=== PATIENT | male | born 1985 | race Caucasian/White ===

== ENCOUNTER 2024-01-15 12:47 | Emergency (ER) | payer OTHER ==
[~2024-01-15] VITALS: Ht 188 cm; Wt 115.0 kg
[2024-01-15] MEDS ORDERED: NITROGLYCERIN 0.4 MG SUBL SL PRN (13:00)
[2024-01-15] MEDS ORDERED: ASPIRIN 81 MG CHEW PO ONE (13:00)
[2024-01-15] MEDS ORDERED: KETOROLAC TROMETHAMINE 30 MG/ML VIAL IV ONE (13:00)
[2024-01-15 13:26] LABS: BASOPHILS 0.5 % (0-2); HEMATOCRIT 41.1 % (35.0-50.0); HEMOGLOBIN 14.4 g/dL (12.0-18.0); LYMPHOCYTES 10.7 % (24-44); MCH 28.5 (27-36); MCV 81.6 fl (81-99); MONOCYTES 5.7 % (0-12); NEUTROPHILS 81.1 % (39-80); PLATELET COUNT 234 K/uL (140-440); RBC 5.03 M/ul (4.3-5.7); RDW 13.3 (10.5-15.0)
[2024-01-15 13:39] LABS: INR 0.98 (0.80-1.30); PROTIME 12.3 Sec (11.2-14.2)
[2024-01-15 13:48] LABS: ALBUMIN 4.2 g/dL (3.4-5.0); ALBUMIN/GLOBULIN RATIO 1.27 (1.1-2.4); ALKALINE PHOSPHATASE 72 U/L (46-116); ALT (SGPT) 26 U/L (14-59); ANION GAP 11.3 (7-21); AST (SGOT) 11 U/L (15-37); BILIRUBIN, TOTAL 0.4 ng/dL (0.2-1.0); BUN/CREATININE RATIO 20.58 (6.0-28.6); CALCIUM 9.3 mg/dL (8.5-10.1); CARBON DIOXIDE 31 mmol/L (21-32); CHLORIDE 101 mmol/L (98-107); CREATININE, SERUM 1.02 mg/dL (0.70-1.30); GLOMERULAR FILTRATION RATE,EST 95 mL/min (>60); POTASSIUM 4.3 mmol/L (3.5-5.1); PROTEIN, TOTAL 7.5 g/dL (6.4-8.2); UREA NITROGEN 21 mg/dL (7-18)
[2024-01-15 15:46] VITALS: BP 122/77
--- NOTE | 2024-01-15 21:27 | EKG ---
[facility] [address] [facility] [place] [address] Signed Normal sinus rhythm Normal ECG No previous ECGs available Confirmed by Salvatore Armstrong MD () on 01/15/2024 9:26:46 PM Electronically Signed By: SALVATORE ARMSTRONG MD 01/15/[id number] PATIENT NAME: AMIE GARCIA Electrocardiogram DATE OF : 81 PHYSICIAN: SALVATORE ARMSTRONG MD REPORT #: [id number] REPORT IS CONFIDENTIAL AND NOT TO BE RELEASED WITHOUT AUTHORIZATION
== END 2024-01-15 15:51 | disposition home or self-care (01) ==
LOC: ED 12:47
PROVIDERS: Emergency Medicine
DX: R07.89 Other chest pain (principal); Z88.5 Allergy status to narcotic agent; Z88.8 Allergy status to other drugs, medicaments and biological substances
CPT/HCPCS: 36415; 71045; 71260; 80053; 83735; 83880; 84484; 85025; 85610; 85730; 93005; 93010; 99285-25; A9270; J1885; Q9967